=== PATIENT | female | born 1990 | race African-American/Black ===

== ENCOUNTER 2022-04-23 14:43 | Outpatient (CLI) | payer OTHER | END 2022-04-23 14:44 | disposition home or self-care (01) | LOC: BICRAD 14:43 | PROVIDERS: ATTEND Internal Medicine Pulmonary Disease | DX: Z11.1 Encounter for screening for respiratory tuberculosis (principal) | CPT/HCPCS: 71045 ==

== ENCOUNTER 2023-05-21 12:03 | Emergency (ER) | payer SELFPAY | END 2023-05-21 14:27 | disposition left against medical advice (07) | LOC: ERS 12:03 | DX: Z53.21 Procedure and treatment not carried out due to patient leaving prior to being seen by health care provider (principal) ==